=== PATIENT | male | born 1965 | race Caucasian/White ===

== ENCOUNTER → 2021-12-29 12:09 | Outpatient (BNVA) | payer OTHER, SELFPAY | PROVIDERS: Family Provider Family Medicine; PCP Family Medicine; Visit Provider Family Medicine | DX: I10 Essential (primary) hypertension (principal); E34.9 Endocrine disorder, unspecified; E11.8 Type 2 diabetes mellitus with unspecified complications | CPT/HCPCS: 80053; 80061; 83036 ==

== ENCOUNTER → 2022-01-13 08:10 | Outpatient (BNVA) | payer OTHER, SELFPAY | PROVIDERS: Family Provider Family Medicine; PCP Family Medicine; Visit Provider Family Medicine | DX: N28.9 Disorder of kidney and ureter, unspecified (principal) | CPT/HCPCS: 80048 ==

== ENCOUNTER → 2022-04-27 14:10 | Outpatient (BNVA) | payer OTHER, SELFPAY | PROVIDERS: Family Provider Family Medicine; PCP Family Medicine; Visit Provider Family Medicine | DX: E34.9 Endocrine disorder, unspecified (principal); N18.9 Chronic kidney disease, unspecified; E11.22 Type 2 diabetes mellitus with diabetic chronic kidney disease | CPT/HCPCS: 80053; 80061; 83036; 84403; 85025 ==

== ENCOUNTER → 2023-01-18 08:10 | Outpatient (BNVA) | payer OTHER, SELFPAY | PROVIDERS: Family Provider Family Medicine; PCP Family Medicine; Visit Provider Family Medicine | DX: E11.9 Type 2 diabetes mellitus without complications (principal); N18.9 Chronic kidney disease, unspecified; E34.9 Endocrine disorder, unspecified | CPT/HCPCS: 80053; 80061; 83036; 84403; 85025 ==

== ENCOUNTER 2025-06-02 15:07 | Outpatient (CLI) | payer OTHER, SELFPAY ==
--- NOTE | 2025-06-02 15:13 | US_ITS ---
WS: [id number] RENAL ULTRASOUND HISTORY: HTN/ELEVATED CREATINE COMPARISON: None available. TECHNIQUE: 2-D and color Doppler imaging of the kidney submitted. Right kidney: 9.1 cm x 5.0 cm x 4.8 cm. Cortex: 1.2 cm Normal size kidney. Normal cortical thickening. Lower pole parapelvic cyst measures 3.0 x 1.9 x 2.0 cm. No solid mass identified. Left kidney: 9.5 cm x 4.4 cm x 5.2 cm. Cortex: 1.2 cm Normal echogenicity with no hydronephrosis or mass. Aorta: Atherosclerosis. No aneurysm. Urinary Bladder: Mildly distended. US/US renal BI* [id number] IMPRESSION: 1. No renal obstruction or atrophy. 2. Lower pole RIGHT parapelvic cyst, 3.0 cm.
== END 2025-06-02 15:08 | disposition home or self-care (01) ==
LOC: RAD 15:09
PROVIDERS: Family Provider Family Medicine; PCP Family Medicine; Visit Provider Family Medicine Geriatric Medicine
DX: Z01.89 Encounter for other specified special examinations (principal); R94.4 Abnormal results of kidney function studies; N32.89 Other specified disorders of bladder
CPT/HCPCS: 76770